=== PATIENT | male | born 1965 | race Caucasian/White ===

== ENCOUNTER 2017-04-18 09:21 | Day surgery (SDC) | payer OTHER ==
[2017-04-18] MEDS ORDERED: DIAZEPAM 5 MG TAB PO ONE (09:25)
[2017-04-18] MEDS ORDERED: NS 1,000 ML IV ONE (09:25)
[2017-04-18] MEDS ORDERED: FAMOTIDINE 20 MG TAB PO ONE (09:25)
[2017-04-18] MEDS ORDERED: diphenhydrAMINE 25 MG CAP PO ONE ×2 (09:25→09:43)
[2017-04-18] MEDS ORDERED: ASPIRIN EC 325 MG TAB PO ONE ×2 (09:25→09:43)
--- NOTE | 2017-04-18 09:40 | CPEKG ---
Heart Rate: 59 RR Interval: 1017 P-R Interval: 160 QRSD Interval: 96 QT Interval: 444 QTC Interval: 440 P [place]: 29 QRS [place]: 62 T Wave [place]: 22 EKG Severity - NORMAL ECG - EKG Impression: SINUS RHYTHM Electronically Signed By: Jeremy Gee 18-Apr-2017 17:30:45
[2017-04-18] MEDS ORDERED: DIAZEPAM 5 MG TAB ONE (09:43)
[2017-04-18] MEDS ORDERED: FAMOTIDINE 20 MG TAB ONE (09:43)
[2017-04-18 09:55] LABS: % IMMATURE GRANULYOCYTES 0.2 % (0.0-1.1); ABSOLUTE IMMATURE GRANULOCYTES 0.01 10^3/uL (0.00-0.10); ADD DIFF? NO; ADD MORPH? NO; ADD SCAN? NO; ATYPICAL LYMPHOCYTE FLAG 10 (0-99); FRAGMENT RBC FLAG 0 (0-99); HEMATOCRIT 45.9 % (40.0-51.0); HEMOGLOBIN 15.1 g/dL (13.7-17.5); LEFT SHIFT FLG 0 (0-99); LIPEMIA HEMOLYSIS FLAG 80 (0-99); MEAN CELL HEMOGLOBIN 26.3 pg (27.9-34.1); MEAN CELL HEMOGLOBIN CONCENTR. 32.9 g/dL (32.4-36.7); PLATELET CLUMPS FLAG 0 (0-99); PLATELET COUNT 139 10^3/uL (150-400); RED BLOOD CELL COUNT 5.74 10^6/uL (4.40-6.38); RED CELL DISTRIBUTION WIDTH 13.2 % (11.5-15.2)
[2017-04-18 10:06] LABS: PROTIME(PATIENT) 13.1 SEC (12.0-15.0)
[2017-04-18 10:22] LABS: ANION GAP 14 mEq/L (8-16); CALCIUM 9.4 mg/dL (8.5-10.4); CARBON DIOXIDE 23 mEq/l (22-31); CHLORIDE 106 mEq/L (97-110); CHOLESTEROL 151 mg/dL (140-200); CHOLESTEROL/HDL RATIO 3.68 RATIO (1.00-4.97); CREATININE 0.8 mg/dL (0.7-1.3); GLOMERULAR FILTRATION RATE > 60; GLUCOSE 93 mg/dL (70-100); HIGH DENSITY LIPOPROTEIN 41 mg/dL (40-65); LOW DENSITY LIPOPROTEIN 82 mg/dL (70-100); MAGNESIUM 1.8 mg/dL (1.6-2.3); NON-HIGH DENSITY LIPOPROTEIN 110 mg/dL (90-129); POTASSIUM 4.1 mEq/L (3.5-5.2); SODIUM 143 mEq/L (134-144); TRIGLYCERIDE 143 mg/dL (40-150); VERY LOW DENSITY LIPOPROTEINS 28 mg/dL (8-25)
[2017-04-18] MEDS ORDERED: IOPAMIDOL (ISOVUE-370) 150 ML BTL IV ONE (11:18)
[2017-04-18] MEDS ORDERED: LIDOCAINE 1% 300 MG/30 ML SDV ONE (11:18)
[2017-04-18] MEDS ORDERED: fentaNYL 100 MCG/2 ML INJ ONE (11:18)
[2017-04-18] MEDS ORDERED: MIDAZOLAM 2 MG/2 ML VIAL ONE ×2 (11:18→12:17)
[2017-04-18] MEDS ORDERED: ONDANSETRON 4 MG/2 ML VIAL IVP PRN (12:59)
[2017-04-18] MEDS ORDERED: HYDROCODONE/APAP 5/325 TAB PO PRN (12:59)
[2017-04-18] MEDS ORDERED: NITROGLYCERIN 0.4 MG BTL SL PRN (12:59)
[2017-04-18] MEDS ORDERED: OXYCODONE/APAP 5/325 TAB PO PRN (12:59)
[2017-04-18] MEDS ORDERED: ATROPINE SULFATE 1 MG/10 ML SYR IVP PRN (12:59)
--- NOTE | 2017-04-18 16:24 | CPIP ---
[f rep st] INVASIVE CARDIAC PROCEDURE DATE OF PROCEDURE: 04/18/2017 PROCEDURE PERFORMED: Diagnostic left heart catheterization. INDICATIONS FOR LEFT HEART CATHETERIZATION: History of coronary artery disease with high risk featu res on exercise nuclear stress test including [address]-segment depression with exercise coupled wi th evidence of inferior wall ischemia, coupled with strong family history of premature coronary jose ry disease. DESCRIPTION OF PROCEDURE: After informed consent was obtained the patient was brought to the [facility] catheterization lab where he was prepped and draped in a sterile fashion. Using 1% lidocaine righ t groin was anesthetized. Using modified Seldinger technique, a 6-Sami sheath was placed in the r ight common femoral artery without complications. JL4 catheter was used to take images of the left coronary anatomy in multiple projections. The JL4 catheter was exchanged over a guidewire for a JR4 catheter. JR4 catheter was used to take images of the right coronary artery. The JR4 catheter was exchanged over a guidewire for an angled pigtail catheter. Angled pigtail catheter was used to crocodile farmer ss the aortic valve. Left ventriculogram was performed. LVEDP was assessed and aortic valve gradie nt was assessed. Angled pigtail catheter was removed over a guidewire without complications. FINDINGS: Left main normal size and caliber. It bifurcates into left anterior descending and left circumflex coronary artery. There is no evidence of coronary disease within the left main. Left anterior descending artery demonstrates some mild luminal irregularities in the proximal segmen t of the vessel. The remainder of the vessel is free of coronary artery disease. There is a modera te size first and second diagonal branch that are free of coronary artery disease. Circumflex artery is a large caliber dominant vessel. There is a moderate size 1st obtuse marginal branch. No evidence of coronary disease within the circumflex system. The right coronary artery is a small nondominant vessel. No evidence of coronary disease within the right coronary artery. CONCLUSION: 1. Mild nonobstructive coronary artery disease within the proximal left anterior descending. 2. Normal left ventricular function with LVEF of 60% to 65%. LVEDP 12 mmHg. PLAN: 1. Patient will be discharged home this afternoon. 2. Aggressive medical therapy with increased dose of atorvastatin to 80 mg daily. We will continue aspirin 81 mg daily. We will plan to follow up in the office in 1 to 2 weeks. We will also plan t o repeat fasting lipid profile and hepatic function in 6-8 weeks. He is also scheduled for a bilate ral carotid Doppler in the setting of audible bruit on exam in the office last week. /[id number]/MODL
== END 2017-04-18 16:00 | disposition home or self-care (01) ==
LOC: FCATH 09:21
PROVIDERS: ATTEND Internal Medicine Cardiovascular Disease
PROC: 4A023N7 Measurement of Cardiac Sampling and Pressure, Left Heart, Percutaneous Approach (ICD-10-PCS; principal; 2017-04-18)
PROC: B2151ZZ Fluoroscopy of Left Heart using Low Osmolar Contrast (ICD-10-PCS; principal; 2017-04-18)
PROC: B2111ZZ Fluoroscopy of Multiple Coronary Arteries using Low Osmolar Contrast (ICD-10-PCS; principal; 2017-04-18)
DX: I25.10 Atherosclerotic heart disease of native coronary artery without angina pectoris (principal); Z82.49 Family history of ischemic heart disease and other diseases of the circulatory system; E78.5 Hyperlipidemia, unspecified; F42.9 Obsessive-compulsive disorder, unspecified; F41.8 Other specified anxiety disorders
CPT/HCPCS: C1760; J1644; J2250; J3010; Q9967

== ENCOUNTER → 2017-04-25 | Outpatient (CLI) | payer OTHER | LOC: BMCIMAGING 07:04 | PROVIDERS: ATTEND Internal Medicine Cardiovascular Disease | DX: R09.89 Other specified symptoms and signs involving the circulatory and respiratory systems (principal) ==